=== PATIENT | female | born 1985 | race Caucasian/White ===

== ENCOUNTER → 2021-04-23 18:04 | Outpatient (CLI) | payer OTHER, MEDICAID, SELFPAY ==
[2021-04-23 18:36] LABS: COVID19 -Nasal RAPID Negative (Negative)
[2021-04-23 18:52] LABS: Add Manual Diff / Slide Review NO; Basophils Absolute Auto 100 /uL (0-100); Eosinophils Absolute Auto 100 /uL (0-450); Eosinophils Percent Auto 1.2 % (2-4); Hematocrit 37.8 % (36-46); Hemoglobin 12.6 g/dL (12.0-16.0); Lymphocytes Absolute Auto 1700 /uL (1100-4500); Lymphocytes Percent Auto 33.2 % (25-40); Mean Corpuscular HGB Conc 33.3 % (30-36); Mean Corpuscular Volume 87.1 fL (80-100); Monocytes Absolute Auto 300 /uL (0-900); Monocytes Percent Auto 5.9 % (3-14); Neutrophils Absolute Auto 3000 /uL (1500-7000); Neutrophils Percent Auto 58.7 % (50-75); Platelet Count 233 X10^3/uL (150-400); Red Blood Cell Count 4.35 X10^6/uL (4.0-5.2); White Blood Cell Count 5.2 X10^3/uL (4.5-11.0)
[2021-04-23 19:23] LABS: BUN Creatinine Ratio 14.8 (6-22); Blood Urea Nitrogen 8 mg/dL (7-17); Carbon Dioxide 27 mmol/L (22-32); Chloride 104 mmol/L (98-107); Estimated Glomerular Filt Rate > 60.0 mL/min (>60); Glucose 91 mg/dL (70-100); HEMOLYSIS < 15 (0-50); Potassium 3.7 mmol/L (3.4-5.1); Sodium 138 mmol/L (137-145)
[2021-04-23 19:53] LABS: TSH w/ Reflex to FT4 1.38 uIU/mL (0.47-4.68)
== END ==
PROVIDERS: PCP Family Medicine; Visit Provider Physician Assistant
DX: Z20.822 Contact with and (suspected) exposure to COVID-19 (principal); R00.2 Palpitations
CPT/HCPCS: 36415; 80048; 84443; 85025; 87635